=== PATIENT | male | born 1965 | race Caucasian/White ===

== ENCOUNTER 2018-12-08 08:51 | Emergency (ER) | payer OTHER ==
[~2018-12-08] VITALS: Ht 165.1 cm; Wt 73.9 kg
[2018-12-08 08:59] VITALS: BP 120/81; Ht 165.1 cm; Wt 73.9 kg
== END 2018-12-08 11:19 | disposition home or self-care (01) ==
LOC: ED 08:51
DX: S90.121A Contusion of right lesser toe(s) without damage to nail, initial encounter (principal); W22.8XXA Striking against or struck by other objects, initial encounter; Y93.89 Activity, other specified; Y92.89 Other specified places as the place of occurrence of the external cause; Y99.8 Other external cause status